=== PATIENT | male | born 1990 | race Caucasian/White ===

== ENCOUNTER 2018-10-02 15:46 | Emergency (ER) | payer OTHER, SELFPAY ==
[2018-10-02 15:46] VITALS: BP 130/76; PULSE 82; RESP 16; TEMP 36.6; O2SAT 100; BMI 23.3
--- NOTE | 2018-10-02 16:09 | CT_ITS ---
STUDY: CT ABDOMEN AND PELVIS WITH CONTRAST REASON FOR EXAM: Male, 28 years old. Right lower quadrant pain RADIATION DOSAGE (If Supplied By Facility): CTDIvol = ( 9.85 ) mGy, DLP = ( 477.27 ) mGycm TECHNIQUE: Transaxial images were obtained from the dome of the diaphragm to the symphysis pubis without oral contrast. 100 IV/Oral Isovue 300 was administered. Sagittal and coronal images were reconstructed. Individualized dose optimization techniques were used for this CT. COMPARISON: None. FINDINGS: The visualized lung bases are unremarkable. The visualized portions of the heart are within normal limits. Normal liver. Normal gallbladder and extrahepatic biliary system. Normal spleen. Normal pancreas. Normal bilateral adrenal glands. 3 mm probable cyst in the right kidney. Normal left kidney. Normal visualized stomach. Normal small intestine. Normal colon. The appendix is visualized and appears normal. Normal abdominal aorta. Normal inferior vena cava. Normal retroperitoneum. Normal urinary bladder. Normal abdominal wall. Normal osseous structures. CT/Abdomen/Pelvis WITH Contrast IMPRESSION: Right renal cyst. Normal appendix. Electronically Signed: Neil Jones DO at 18:22 EDT Tel [phone], Service support ,
[2018-10-02] MEDS: 0.9% Normal Saline 1,000 ML 1000 ML IV (16:21)
[2018-10-02 16:27] LABS: Basophil# 0.03 X10^3/uL; Basophil% 0.5 % (0-1); Eosinophil# 0.04 X10^3/uL; Eosinophils% 0.6 % (0-5); Hematocrit 45.5 % (40-54); Hemoglobin 15.7 g/dL (13.0-16.5); Lymphocyte % 31.6 % (19-41); Mean Corp Hgb Conc 34.5 g/dL (32-36); Mean Corpuscular Hgb 30.3 pg (27.0-32.0); Mean Corpuscular Volume 87.7 fL (80-94); Monocyte# 0.43 X10^3/uL; Monocyte% 6.5 % (0-10); NRBC Flagged by Analyzer 0 % (0-5); Neutrophil # 4.03 X10^3/uL (2.7-7.7); Neutrophil % 60.5 % (47-70); Platelet Count 276 K/mm3 (150-450); RBC Distribution Width CV 11.3 % (11.6-14.6); Red Blood Count 5.19 M/mm3 (4.6-6.2); White Blood Count 6.7 K/mm3 (4.4-11.0)
[2018-10-02 16:38] LABS: Anion Gap 7 (5-15); BUN 13 mg/dL (7-18); BUN/Creat Ratio 14.5 RATIO (10-20); Calcium,Total 9.4 mg/dL (8.5-10.1); Chloride 104 mmol/L (98-107); EST Glomerular Filtration Rate 107 mL/min (>60); Est Glom Filt Rate - Afr Amer 130 mL/min (>60); Glucose 82 mg/dL (74-106); Potassium 3.4 mmol/L (3.5-5.1); Sodium Level 138 mmol/L (136-145)
[2018-10-02 17:13] LABS: Bacteria 0 SEEN /hpf (None Seen); Mucous, Urine 0 SEEN /hpf (<or=2+); Red Blood Cells-Urine 0 SEEN /hpf (0-5); Squamous Epithelial Cells - UA 0 SEEN /hpf (0-5); White Blood Cells 0 SEEN /hpf (0-5)
[2018-10-02 17:47] LABS: Color, Urine Yellow (Yellow); Glucose, Dipstick Normal (Normal); Ketone-Dipstick 5 mg/dl (Negative); Leukocyte Esterase-Dipstick Negative /ul (Negative); Nitrite-Dipstick Negative (Negative); Occult Blood-Urine Negative /ul (Negative); Protein-Dipstick Negative (Negative); Specific Gravity, Urine 1.005 (1.002-1.030); Urine Bilirubin Dipstick Negative (Negative); Urine Clarity Clear (Clear); Urine Urobilinogen Normal (Normal)
--- NOTE | 2018-10-02 18:03 | ED.DCSUM_ITS ---
- ER Visit Summary Date of Service: 10/02/18 Chief Complaint: Abdominal pain History of Present Illness: The patient is a 28 M with no primary care physician. He reports that he has right lower abdominal pain that began 2 days ago. Is gradually gotten worse. Is a dull, burning pain is 4 to 10 hours and 2 out of 10 currently. Is worsened by pushing on it and relieved by nothing. He said nausea without vomiting. No diarrhea. His last bowel was today. No melena or hematochezia. No dysuria frequency. No fever or chills. Physical Examination: Vitals: Stable. Afebrile. General: Well-nourished and well-developed. Head: Normocephalic atraumatic. Neck: Supple, no lymphadenopathy. No JVD. Nontender. Cardiovascular: Regular rate and rhythm. No murmurs. Respiratory: No respiratory distress. Clear to auscultation bilaterally. Abdominal: Soft, moderate right lower quadrant tenderness to palpation, nondistended, normal bowel sounds. No guarding, rebound, or peritoneal signs. Back: Nontender. Extremities: Nontender, no edema. Skin: Normal color, no rash. Neurologic: Alert and oriented ?3. Cranial nerves II through XII are intact. Normal strength and sensation. Psych: Normal affect. Test Results: CBC is normal. Chem-7 shows a potassium 3.4. UA is negative. CT abdomen pelvis with p.o. and IV contrast shows a normal appendix. He does have a right renal cyst. Emergency Department Course and Treatment: Patient refused pain and nausea medications. He is resting comfortably. Treatment Plan: Patient will be discharged instructed to follow-up Dr. Reeves in 1 to 2 days if not improving. Return to the emergency department for any worsening symptoms. Disposition: To home in improved and stable condition. Impression: 1. Abdominal pain, uncertain cause. This note was generated with Guidekick dictation software. It may contain incorrect words, spelling, and punctuation that were not noted in review of the chart prior to signing ED Disposition - Plan for ED Patient: Disposition: Home or Assisted Living Instructions: ABDOMINAL PAIN, Unkown Cause, (Male) Prescriptions: Ondansetron [Zofran Odt] 4 mg PO Q8H PRN PRN #10 tab PRN Reason: Nausea Prescription Printed Referrals: Dallin Reeves DO [NON CLINICAL AFFILIATE] - 1-2 Days if not improving
[2018-10-02 18:16] VITALS: BP 124/80; PULSE 84; RESP 16; TEMP 36.7; O2SAT 98
[2018-10-02 18:50] VITALS: BP 121/74; PULSE 62; RESP 15; O2SAT 98
== END 2018-10-02 18:50 | disposition home or self-care (01) ==
PROVIDERS: Emergency Provider Emergency Medicine
DX: R10.9 Unspecified abdominal pain (principal); R11.0 Nausea; N28.1 Cyst of kidney, acquired
CPT/HCPCS: 74177; 80048; 81001; 85025; 99283; Q9967; A4216

== ENCOUNTER → 2020-11-16 | Outpatient (CLI) | payer OTHER, SELFPAY | END | disposition home or self-care (01) | LOC: LABSPEC 09:14 | PROVIDERS: Visit Provider Physician Assistant | DX: Z11.52 Encounter for screening for COVID-19 (principal) ==

== ENCOUNTER → 2020-11-16 | Outpatient (CLI) | payer OTHER, SELFPAY | END | disposition home or self-care (01) | LOC: LABSPEC 13:14 | PROVIDERS: Visit Provider Physician Assistant | DX: U07.1 COVID-19 (principal) | CPT/HCPCS: 87635; U0005; U0003 ==

== ENCOUNTER → 2022-06-27 | Outpatient (CLI) | payer OTHER, SELFPAY ==
--- NOTE | 2022-06-27 08:48 | RAD_ITS ---
STUDY: X-RAY - ESOPHAGUS (BARIUM SWALLOW) WITH FLUOROSCOPY REASON FOR EXAM: Male, 32 years old. DYSPHAGIA TECHNIQUE: 16 view(s) of the esophagus were obtained following swallowing of barium. FLUOROSCOPY TIME (if supplied): (28 seconds) minutes/seconds. 4.68 mGy COMPARISON: None. FINDINGS: There is no demonstrated esophageal foreign body. There is no demonstrated stricture or mucosal abnormality. Normal gastroesophageal junction, without a demonstrated hiatal hernia. The patient ingested a 12 mm tablet of barium without any difficulty. Normal visualized aortic arch and descending thoracic aorta. Normal visualized pulmonary parenchyma. Normal visualized osseous structures of the thorax. RAD/Esophagus Dual Contrast IMPRESSION: Normal plain film x-ray examination (barium swallow) of the esophagus. Electronically Signed: Ac Dale MD at 10:03 EDT ,
== END | disposition home or self-care (01) ==
LOC: RAD 08:42
PROVIDERS: Visit Provider Otolaryngology
DX: R13.10 Dysphagia, unspecified (principal)
CPT/HCPCS: 74221

== ENCOUNTER 2024-09-06 22:09 | Emergency (ER) | payer OTHER, SELFPAY ==
[2024-09-06 22:11] VITALS: BP 134/82; PULSE 83; RESP 18; TEMP 36.7; O2SAT 99
--- NOTE | 2024-09-06 22:25 | RAD_ITS ---
PROCEDURE: ANKLE MIN 3 VIEWS 09/06/2024 REASON FOR EXAM: UNABLE TO BEAR WEIGHT, PAIN TECHNIQUE: ANKLE MIN 3 VIEWS COMPARISON: No FINDINGS: Lateral ankle swelling. On the oblique view, there is a suggestion of a nondisplaced 5th metatarsal base fracture, correlate with symptoms. RAD/Ankle min 3 Views IMPRESSION: Possible 5th metatarsal base fracture. [facility]
--- NOTE | 2024-09-06 22:38 | ED.VIS.LOWEX ---
HPI History of Present Illness Chief Complaint: Lower Extremity Injury Detail of Chief Complaint: Left ankle injury Informant: patient Narrative Narrative: Patient presents with left ankle injury that occurred about 9 PM. Patient states he was playing basketball when he came down from a rebound and stepped on another person's foot and rolled his ankle. Unable to bear weight afterwards. Denies any other injuries. [facility] Medical History (Updated 09/06/24 @ 22:[address] Narcisa Weir, DO) Encounter for screening for COVID-19 Home Medications ?Medication ?Instructions ?Recorded ?Last Taken ?Type NK 09/06/24 Unknown History Allergy/AdvReac Type Severity Reaction Status Date / Time No Known Allergies Allergy Verified 09/06/24 22:11 Social History Smoking Status: Never smoker ROS ROS ED Review of Systems ROS Unobtainable: other Constitutional Constitutional ED: Reports lethargy; Denies chills, fever(s), sweats or weight loss Eyes Eyes: Denies blurry vision, change in vision or diplopia ENT ENT ED: Denies rhinorrhea or sore throat Cardiovascular Cardiovascular: Denies chest pain, orthopnea or racing heartbeat Respiratory/Chest Respiratory/Chest: Denies cough, dyspnea, dyspnea on exertion, orthopnea or sputum Gastrointestinal Gastrointestinal: Denies abdominal pain, diarrhea, nausea or vomiting Genitourinary Genitourinary ED: Denies dysuria, hematuria or urinary frequency Musculoskeletal Musculoskeletal: Reports other Details: Left ankle injury/pain ; Denies arthralgias, back pain, myalgias or neck pain Integumentary Denies abscess, Abrasions or rash Neurologic Neurologic: Denies headache(s) or weakness Psychiatric Psychiatric: Denies anxiety, depression or suicidal thoughts Endocrine Endocrinology: Denies polydipsia, polyphagia or polyuria Hematologic/Lymphatic Hematologic/Lymphatic: Denies easy bleeding, easy bruising or lymphadenopathy Allergic/Immunologic Allergic/Immunologic ED: Denies mouth swelling, tongue swelling or urticaria EXAM Physical Exam Const Vital Signs: 09/06/24 22:11 Temperature 98.1 F Temperature Source Temporal Pulse Rate 83 Respiratory Rate 18 Blood Pressure 134/82 H Blood Pressure Mean 99 Pulse Ox 99 Oxygen Delivery Method Room Air Positive well nourished and well developed General Appearance ED: well developed and NAD HEENT Reports TM's clear and moist mucous membranes normocephalic and atraumatic; Negative for trauma or tenderness Tympanic Membrane ED: Yes TM's clear Eyes PERRL and EOMs intact bilaterally General Eye ED: Negative for pale conjunctiva or scleral icterus Neck no lymphadenopathy, supple and no JVD General: Negative for tenderness Chest Wall inspection of chest normal and palpation of chest normal Chest: Negative for tenderness Resp normal respiratory effort and clear to auscultation bilaterally Effort and Inspection: Negative for respiratory distress or pain with movement Auscultation: Negative for rhonchi, wheezes or diminished lung sounds Cardio regular rate, regular rhythm, S1 normal heart sound, S2 normal heart sound and no murmurs Peripheral Pulses: pulses 2+ throughout GI normal to inspection, nondistended, normoactive bowel sounds, soft to palpation, non-tender, non-distended and no masses Back/Spine no CVA tenderness and no thoracic nor lumbar tenderness Extremity Extremity Narrative: Left ankle-patient has soft tissue swelling over the lateral malleolus with tenderness to palpation. No pain at the proximal fibular head. No pain at the base of the fifth metatarsal. Neurovascular intact distally General Extremety ED: Negative for edema General Extremity: Negative for edema Neuro oriented x3, CN's II-XII intact bilaterally, no sensory deficits noted and gait normal Sensorium / Orientation: awake, alert, oriented to person, oriented to place and oriented to time Motor Exam: strength 5/5 throughout and strength abnormal Psych mental status grossly normal Skin no rashes or lesions noted and no wounds MDM MDM MDM Narrative Medical decision making narrative: Patient presents with left ankle injury. X-rays obtained showed no fracture on my interpretation. He will be given an air splint and crutches. He is instructed to ice and elevate extremity. He is to follow-up with primary care physician on-call for no doc within the next 7 to 10 days. Radiography Diagnostic Testing: Three-view x-rays of the left ankle obtained interpreted by myself as no evidence of fracture or dislocation. Discharge Plan Triage Chief Complaint: Lower Extremity Injury ED Provider: Narcisa Weir Dx/Rx/DC Orders Clinical Impression: Left ankle sprain Instructions: ED Ankle Sprain (Adult) Prescriptions: No Action NK Primary Care Provider: Care Physician,No Primary Referrals: Wood Hazel MD [Med Staff - Speed Reading Teacher] - 1 Week Care Physician,No Primary [Primary Care Provider] - Print Language: Occitan Disposition Disposition: Home, Self Care
--- OUTSIDE RECORDS SUMMARY | 2024-09-06 22:48 | XMS RPT_ITS | CCD ---
Author Organization [facility] [place] Inform ion Partnership [facility] Care Team Providers Care Claims Service Representative Name Role Phone MD Quinn, El Silverman Unavailable Narcisa Weir Attending Unavailable Care Physician, No Primary Primary Care Unava ilable Medications Current Medications Medication Drug Class(es) Dates Sig (Normalized) Sig (Original) cetirizine hydrochloride 10 mg oral tablet (1 source) Histamine-1 Receptor Antagonist Start: 10-02-2018 take 10 mg by mouth once daily Cetirizine Active 10 MG PO DAILY October 02, 2018 12:00am ondansetron 4 mg disintegrating oral tablet (1 source) Serotonin-3 Receptor Antagonist Start: 10-02-2018 take 4 mg by mouth every eight hours as needed Ondansetron Active 4 MG PO EVERY 8 HOURS NEEDED October 02, 2018 12:00am Problems Active Problems Problem Classification Problem Date Documented Da te Episodic/Chronic Cardiac dysrhythmias (3 sources) Sinus tachycardia; Translations: [Tachycardia, unspecified] Onset: 08-09-2016 08-09-2016 Chronic Immunizations and screening for infectious disease (1 source) Patient encounter status; Translations: [Encounter for screening for COVID-19] 11-16-2020 Episodic Past or Other Problems Problem Classification Problem Date Documented Da te Episodic/Chronic Conditions associated with dizziness or vertigo (3 sources) Dizziness; Translations: [Dizziness and giddiness] Onset: 08-09-2016 08-09-2016 Episodic Other upper respiratory infections (3 sources) Acute frontal sinusitis; Translations: [Acute frontal sinusitis, unspecified] Onset: 08-09-2016 08-09-2016 Episodic Results Test Name Value Interpretation Reference Range Facility Office Visit: UC: Lon frey 08-09-2016 Alcoholism counseling (procedure) no Invalid Interpretation Code [facility] Work Phone: Documentation of current medications (procedure) T Invalid Interpretation Code [facility] [employer] Work Phone: [phone] Documentation of current medications (procedure) Done Invalid Interpretation Code [facility] [employer] Work Phone: [phone] Fall risk assessment No Invalid Interpretation Code [facility] Work Phone: [phone] Tobacco smoking status NHIS Never Invalid Interpretation Code [facility] Work Phone: [phone] Tobacco smoking status NHIS Never smoker [facility] [employer] Work Phone: [phone] Tobacco use [facility] Never smoker Invalid Interpretation Code [facility] [employer] Work Phone: [phone] Replaced Document: [employer] Observationson 08-09-2016 BUN (urea nitrogen) Sinus Tachycardia -Incomplete right bundle branch block. ABNORMAL Invalid Interpretation Code [facility] [employer] Work Phone: [phone] EKG QRS axis 79 deg [facility] [employer] Work Phone: [phone] GE use only - for [employer] import when terms are not otherwise specified 400 ms Invalid Interpretation Code [facility] [employer] Work Phone: [phone] P [place] 54 deg [facility] [employer] Work Phone: [phone] P wave axis, electrocardiogram 54 deg Invalid Interpretation Code [facility] [employer] Work Phone: [phone] NH Interval 128 ms [facility] [employer] Work Phone: [phone] NH interval, electrocardiogram 128 ms Invalid Interpretation Code [facility] [employer] Work Phone: [phone] Pulse (Heart Rate) 115 /min Invalid Interpretation Code [facility] [employer] Work Phone: [phone] QRS axis, electrocardiogram 79 deg Invalid Interpretation Code [facility] [employer] Work Phone: [phone] QRS Duration 106 ms [facility] [employer] Work Phone: [phone] QRS duration, electrocardiogram 106 ms Invalid Interpretation Code [facility] [employer] Work Phone: [phone] QT Interval new path ms [facility] [employer] Work Phone: [phone] QT interval, electrocardiogram new path ms Invalid Interpretation Code [facility] [employer] Work Phone: [phone] QTc [place] 400 ms [facility] [employer] Work Phone: T [place] 56 deg [facility] Work Phone: [phone] T wave axis, electrocardiogram 56 deg Invalid Interpretation Code [facility] Work Phone: [phone] Urea nitrogen [Mass/Vol] Sinus Tachycardia -Incomplete right bundle branch block. ABNORMAL [facility] Work Phone: [phone] Vital Signs Date Time Vital Sign Value Performing Clinician Perla meredith 08-09-2016 10:41-0400 Heart rate 115 /min El Ball MD [facility] Work Phone: 08-09-2016 09:56-0400 BMI (Body Mass Index) 23.18 kg/m2 MD [facility] Work Phone: 08-09-2016 09:56-0400 Body Temperature 100.7 [degF] El Ball MD [facility] Work Phone: 08-09-2016 09:56-0400 Body weight 73.3 kg El Ball MD [facility] Work Phone: 08-09-2016 09:56-0400 BP Diastolic 60 mm[Hg] El Ball MD [facility] Work Phone: 08-09-2016 09:56-0400 BP Diastolic 62 mm[Hg] El Ball MD [facility] Work Phone: 08-09-2016 09:56-0400 BP Systolic 110 mm[Hg] El Ball MD [facility] Work Phone: 08-09-2016 09:56-0400 BP Systolic 120 mm[Hg] El Ball MD [facility] Work Phone: 08-09-2016 09:56-0400 Height 177.8 cm El Ball MD [facility] Work Phone: 08-09-2016 09:56-0400 Pulse (Heart Rate) 115 /min El Ball MD [facility] Work Phone: 08-09-2016 09:56-0400 Pulse Oximetry 98 % El Ball MD [facility] Work Phone: 08-09-2016 09:56-0400 Respiratory Rate 16 /min El Ball MD [facility] Work Phone: 08-09-2016 09:56-0400 Weight 73.3 kg El Ball MD [facility] Work Phone: Encounters Encounter Date Encounter Type Care Provider Facility Start: 09-06-2024 ambulatory Remus Ungur Facility:[facility] Start: 06-27-2022 End: 06-27-2022 ambulatory [facility] Work Phone: Start: 06-27-2022 End: 06-27-2022 Patient encounter procedure [facility], [facility] Procedures Date Procedure Procedure Detail Performing Clinician Start: 06-27-2022 Radiography of esophagus Start: 08-09-2016 End: 08-09-2016 Alcoholism counseling El Ball MD Start: 08-09-2016 End: 08-09-2016 Documentation of current medications El Ball MD Plan of Treatment Date Care Activity Detail Author Start: 08-09-2016 End: 08-09-2016 Appointment Appointment [facility] Work Phone: Start: 08-09-2016 End: 08-09-2016 Appointment Appointment [facility] Work Phone: Start: 08-09-2016 End: 08-09-2016 Electrocardiogram, complete EKG (In office) [facility] Work Phone: Payers Date Payer Category Payer Self-pay [id number] 2024 Unknown [id number] Unknown [id number] Social History Date Type Detail Facility Start: 11-16-2020 Tobacco smoking stat us NHIS Unknown if ever smoked [facility] Start: 1990 Sex Assigned At Male W [facility] Evaluation note Note Date & Type Note Facility Evaluation note No assessment information availa diane [facility] Work Phone: Chief Complaint and Reason for Visit Chief Complaint DYSPHAGIA Advance Directives No Advanced Directives Records Found Advance Directive Response Recorded Date/ Time Living Will No October 02, 2018 4:34pm Power of Client Support Professional No October 02 9 4:34pm Summary Purpose Family History No Family History Records Found Additional Source Comments Care Teams (unrecognized sec tion and content) Team Status: Active Member Role Status Dates No Primary Care Physician Family Provider Active No Primary Care Physician Primary Care Provider Active Team Status: Inactive Member Role Status Dates No Primary Care Physician Primary Care Provider Active Dr. Jose Elizalde MD Attending Provider Activ e Goals (unrecognized section and content) Goals may be documented in a n alternate section (unrecognized sect ion and content) No Status Records Found INFORMATION SOURCE (unrecogn ized section and content) DATE CREATED AUTHOR 09/06/2024 [facility] FOR RECORDS PERTAINING TO PATIENTS WHO ARE OR HAVE BEEN ENROLLED IN A CHEMICAL DEPENDENCY/SUBSTANCEABUSE PROGRAM, SOME INFORMATION MAY BE OMITTED. This clinical summary was aggregated from multiple sources. Caution should be exercised in using it in the provision of clinical care. This summary normalizes information from multiple sources, and as a consequence, information in this document may materially change the coding, format and clinical context of patient data. In addition, data may be omitted in some cases. CLINICAL DECISIONS SHOULD BE BASED ON THE PRIMARY CLINICAL RECORDS. [facility] [employer] provides no warranty or guarantee of the accuracy or completeness of information in this document.
[2024-09-06 23:19] VITALS: BP 138/74; PULSE 85; RESP 18; TEMP 36.4; O2SAT 100
== END 2024-09-06 23:20 | disposition home or self-care (01) ==
LOC: ED 22:47
PROVIDERS: Emergency Provider Emergency Medicine; Visit Provider Emergency Medicine
DX: S93.402A Sprain of unspecified ligament of left ankle, initial encounter (principal); X58.XXXA Exposure to other specified factors, initial encounter; Y93.67 Activity, basketball
CPT/HCPCS: 73610; 99284